=== PATIENT | male | born 1965 | race Hispanic/Latino ===

== ENCOUNTER 2017-05-17 13:14 | Emergency (ER) | payer OTHER ==
[2017-05-17 14:56] LABS: BASO # 0.1 K/uL (0.0-0.2); BASO % 0.8 % (0.0-2.0); EOS # 0.1 K/uL (0.0-0.7); EOS % 1.3 % (0.0-4.0); HEMATOCRIT 46.7 % (35.0-51.0); LYMPH # 2.1 K/uL (1.0-4.3); LYMPH % 21.7 % (20.0-40.0); MEAN CELL VOLUME 82.7 fL (80.0-94.0); MEAN CORPUSCULAR HEMOGLOBIN 27.5 pg (27.0-31.0); MEAN CORPUSCULAR HGB CONC 33.2 g/dL (33.0-37.0); MONO # 0.5 K/uL (0.0-0.8); MONO % 5.1 % (0.0-10.0); NRBC % 0.1 % (0.0-2.0); RED CELL DISTRIBUTION WIDTH 13.2 % (11.5-14.5); WHITE BLOOD COUNT 9.9 K/uL (4.8-10.8)
--- NOTE | 2017-05-17 15:41 | CT ---
PROCEDURE: CT HEAD WITHOUT CONTRAST. HISTORY: R facial droop, mild prob Duarte's COMPARISON: None available. TECHNIQUE: Axial computed tomography images were obtained through the head/brain without intravenous contrast. Radiation dose: Total exam DLP = 993.11 mGy-cm. This CT exam was performed using one or more of the following dose reduction techniques: Automated exposure control, adjustment of the mA and/or kV according to patient size, and/or use of iterative reconstruction technique. FINDINGS: HEMORRHAGE: No intracranial hemorrhage. BRAIN: There is no mass, mass effect or abnormal extra-axial fluid collection. VENTRICLES: There is moderate ventricular dilatation and sulcal prominence, advanced for the patient's age. CALVARIUM: The skull base and calvarium are normal. PARANASAL SINUSES: Predominantly clear. MASTOID AIR CELLS: Predominantly clear. OTHER FINDINGS: None. IMPRESSION: No acute intracranial abnormality. Mild global parenchymal volume loss, advanced for the patient's age.
[2017-05-17 15:42] LABS: CHLORIDE 102 mmol/L (98-107); POTASSIUM 4.1 mmol/L (3.6-5.2); SODIUM 143 mmol/L (132-148)
[2017-05-17 15:44] LABS: ALB/GLOB RATIO 1.3 (1.0-2.1); AST/SGOT 40 U/L (17-59); BILIRUBIN,TOTAL 0.7 mg/dL (0.2-1.3); CARBON DIOXIDE 23 mmol/L (22-30); GFR AFRICAN-AMERICAN > 60; TOTAL PROTEIN 7.6 g/dL (6.3-8.3)
[2017-05-17 15:45] LABS: ALKALINE PHOSPHATASE 61 U/L (38-126); ALT/SGPT 34 U/L (21-72); BLOOD UREA NITROGEN 16 mg/dL (9-20); CALCIUM 9.8 mg/dl (8.6-10.4); GLUCOSE,RANDOM 127 mg/dL (75-110)
--- NOTE | 2017-05-17 15:48 | C.PDOC ---
History Of Present Illness 52 year old male presents to the emergency department with complaints of mild right facial droop noticing this morning as he continuously bit his inner cheek. Patient states he has been unable to eat of drink due to dribbling. He notes he has has a "weird feeling in right ear for three days" and has been applying ear drops of ciprodex and cortisporin otic without improvement. Time Seen by Provider: 05/17/17 14:06 Chief Complaint (Nursing): ENT Problem History Per: Patient History/Exam Limitations: no limitations Onset/Duration Of Symptoms: Hrs (right facial droop noticed this morning), Days Loss Of Consciousness: No Recent travel outside of the [place]: No Past Medical History Reviewed: Historical Data, Nursing Documentation, Vital Signs Vital Signs: Last Vital Signs Temp 98.1 F 05/17/17 16:30 Pulse 98 H 05/17/17 16:30 Resp 16 05/17/17 16:30 BP 151/84 H 05/17/17 16:30 Pulse Ox 99 05/17/17 16:30 - Medical History PMH: HTN Surgical History: Tonsillectomy Family History: States: Unknown Family Hx - Social History Hx Alcohol Use: No Hx Substance Use: No Review Of Systems Constitutional: Positive for: Other (Mild right facial droop ). Negative for: Fever, Chills ENT: Positive for: Other ("weird feeling in ear" ) Cardiovascular: Negative for: Chest Pain, Palpitations Respiratory: Negative for: Shortness of Breath Gastrointestinal: Negative for: Nausea, Vomiting, Abdominal Pain, Diarrhea Physical Exam - Physical Exam Appears: Non-toxic, No Acute Distress, Other (Mild right forehead and facial droop) Skin: Warm, Dry Head: Atraumatic Eye(s): right: Normal Inspection, PERRL, EOMI, Other (right eyelid lag) Ear(s): Bilateral: Normal, Other (no vesicles, ear canal normal) Oral Mucosa: Moist Neck: Supple Chest: Symmetrical, No Deformity Cardiovascular: Rhythm Regular Respiratory: Normal Breath Sounds, No Rhonchi, No Wheezing Neurological/Psych: Oriented x3, Normal Speech, Normal Cognition, Normal Cranial Nerves, Normal Motor, Normal Sensation ED Course And Treatment - Laboratory Results Result Diagrams: 05/17/17 14:49 05/17/17 14:49 Lab Interpretation: Normal O2 Sat by Pulse Oximetry: 97 (room air ) - Other Rad head CT X-Ray: Read By Radiologist (neg) Progress Note: pepcid, prednisone Medical Decision Making Medical Decision Making: mild R facial droop involving R forehead, no TURNER, 3 days "strange sensation" near R ear but no infection noted. 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 outpatient f/u w Neuro Operating Room Tech- Rodo- educated. Disposition Doctor Will See Patient In The: Office Counseled Patient/Family Regarding: Studies Performed, Diagnosis - Disposition Referrals: [facility] [Outside] [facility] [Outside] Donald Koehler MD [Staff Provider] - Disposition: HOME/ ROUTINE Disposition Time: 15:48 Condition: GOOD Additional Instructions: Prednisone taper as directed over about 2 weeks Pepcid 20 mg @ night to prevent stomach irritation from the prednisone Eye drops to keep lubricated R eye when you sleep TAPE R eye closed for sleep to avoid dry cornea ulcerations Follow-up with Dr. Koehler- Neurology- for further eval. Prescriptions: Prednisone [Deltasone] 20 mg PO DAILY #22 tablet Instructions: Duarte Palsy (ED) Forms: [facility] ([employer]) - Clinical Impression Clinical Impression: Facial droop, Duarte's palsy - Scribe Statement The provider has reviewed the documentation as recorded by the Scribe Brittany Lizama All medical record entries made by the Scribe were at my direction and personally dictated by me. I have reviewed the chart and agree that the record accurately reflects my personal performance of the history, physical exam, medical decision making, and the department course for this patient. I have also personally directed, reviewed, and agree with the discharge instructions and disposition.
[2017-05-17 16:44] VITALS: BP 151/84; PULSE 98; RESP 16; TEMP 98.1
[2017-05-17 19:50] VITALS: O2SAT 97
== END 2017-05-17 16:45 | disposition home or self-care (01) ==
LOC: C.ER 13:14
DX: G51.0 Bell's palsy (principal)